=== PATIENT | female | born 1955 | race African-American/Black ===

== ENCOUNTER 2019-02-13 16:52 | Emergency (ER) | payer OTHER ==
[~2019-02-13] VITALS: Ht 157.5 cm; Wt 89.8 kg
[~2019-02-13 16:52] MED LIST: ATEN50TA2; HYDR-118
[2019-02-13 17:00] VITALS: BP 173/102
--- NOTE | 2019-02-13 17:12 | NUR ---
Patient to bed 9. RN evaluating patient at bedside.
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
[2019-02-13] MEDS ORDERED: IBUPROFEN 800 MG TAB PO ONE (17:35)
[2019-02-13 19:09] VITALS: BP 146/86
== END 2019-02-13 19:16 | disposition home or self-care (01) ==
LOC: MED 16:52
DX: S63.501A Unspecified sprain of right wrist, initial encounter (principal); S63.502A Unspecified sprain of left wrist, initial encounter; S53.402A Unspecified sprain of left elbow, initial encounter; S53.401A Unspecified sprain of right elbow, initial encounter; S43.402A Unspecified sprain of left shoulder joint, initial encounter; S73.102A Unspecified sprain of left hip, initial encounter; I10 Essential (primary) hypertension; Z79.899 Other long term (current) drug therapy; W18.39XA Other fall on same level, initial encounter; Y93.89 Activity, other specified; Y92.811 Bus as the place of occurrence of the external cause; Y99.8 Other external cause status
CPT/HCPCS: 71101; 73030; 73080; 73110; 73502; 99283